=== PATIENT | female | born 1975 | race Caucasian/White ===

== ENCOUNTER → 2019-05-03 | Outpatient (CLI) | payer OTHER ==
--- NOTE | 2019-05-03 08:49 | FL ---
EXAMINATION TYPE: FL UGI air DATE OF EXAM: 05/03/2019 COMPARISON: NONE HISTORY: Ventral hernia. Abdominal pain. TECHNIQUE: A double contrast UGI study is performed. 1 minute and 45 seconds of fluoroscopy time was utilized with 38 fluoroscopic images saved. FINDINGS: The esophagus shows normal motility and emptying into the stomach. No evidence of hiatal hernia or s tricture noted. The stomach shows normal distensibility, peristalsis, and mucosal folds. No evidence of any mass or ulcer disease. Severe gastroesophageal reflux was seen during the supine portion of the exam. The duodenal bulb, sweep, and proximal small bowel loops are unremarkable. IMPRESSION: Severe gastroesophageal reflux to the level of clavicles and the supine position. No hiat al hernia or stricture seen.
== END | disposition home or self-care (01) ==
LOC: RADUSWWP 07:51
PROVIDERS: ATTEND Family Medicine
DX: K21.9 Gastro-esophageal reflux disease without esophagitis (principal); R11.10 Vomiting, unspecified
CPT/HCPCS: 74246

== ENCOUNTER → 2019-05-08 | Outpatient (CLI) | payer OTHER ==
--- NOTE | 2019-05-08 20:15 | CT ---
EXAMINATION TYPE: CT abdomen w con DATE OF EXAM: 05/08/2019 COMPARISON: HISTORY: LLQ pain, nausea w/vomiting. Not able to keep food down. CT DLP: 1286 mGycm Automated exposure control for dose reduction was used. TECHNIQUE: Helical acquisition of images was performed from the lung bases through the top of iliac crest to include entire abdomen. CONTRAST: Performed with Oral Contrast and with IV Contrast, patient injected with 100 mL of Isovue 300. FINDINGS: LUNG BASES: Motion artifact limits assessment of the lung bases. No obvious consolidation. LIVER/GB: No significant abnormality is appreciated. PANCREAS: No significant abnormality is seen. SPLEEN: Tiny accessory spleen noted. ADRENALS: No significant abnormality is seen. KIDNEYS: No significant abnormality is seen. BOWEL: Bowel gas pattern nonspecific. Stomach is decompressed and limited in assessment. Tiny hiatal hernia suspected. LYMPH NODES: No significant abnormality is seen. OSSEOUS STRUCTURES: Hypertrophic changes of the spine. OTHER: Tiny fat-containing periumbilical hernia. Aorta of normal caliber. IMPRESSION: NO ACUTE PROCESS.
== END | disposition home or self-care (01) ==
LOC: RADCTMAIN 15:28
PROVIDERS: ATTEND Family Medicine
DX: R10.32 Left lower quadrant pain (principal); R11.2 Nausea with vomiting, unspecified
CPT/HCPCS: 74160; Q9967

== ENCOUNTER 2020-06-05 08:40 | Emergency (ER) | payer OTHER ==
[2020-06-05 08:44] VITALS: RESP 18; TEMP 99
[2020-06-05] MEDS ORDERED: FAMOTIDINE 20 MG/2 ML VIAL IV STA (09:00)
[2020-06-05] MEDS ORDERED: SODIUM CHLORIDE 0.9% 1,000 ML IV STA (09:00)
[2020-06-05] MEDS ORDERED: ONDANSETRON 4 MG/2 ML VIAL IVP STA (09:00)
--- NOTE | 2020-06-05 09:02 | ED ---
General Adult HPI - General Chief complaint: Nausea/Vomiting/Diarrhea Stated complaint: Fever, Abd Pain Time Seen by Provider: 06/05/20 08:46 Source: patient Mode of arrival: ambulatory Limitations: no limitations - History of Present Illness Initial comments: 44-year-old female presents emergency Department with chief complaint of nausea, vomiting, body aches and fatigue. States he was in this emergency department 3 days ago but left without being seen. States she continues to be feel nauseous but the vomiting is slightly improved. She reports some epigastric abdominal pain but states that is due to the repetitive vomiting episodes. She also reports having cold sweats over the last few days. Denies any, does report rhinorrhea. As any chest pain cough or shortness of breath. Patient is a smoker. There is a possibility for Covid. Denies history of abdominal surgeries. Denies any urinary or vaginal symptoms. Denies hematuria, hematochezia or melena. - Related Data Home Medications Medication Instructions Recorded Confirmed Acetaminophen/Diphenhydramine 1 tab PO HS PRN 06/05/20 06/05/20 [Tylenol PM 500-25mg] Dramamine 25 mg PO TID PRN 06/05/20 06/05/20 traMADol HCL [Ultram] 50 mg PO TID PRN 06/05/20 06/05/20 Previous Rx's Medication Instructions Recorded Ondansetron Odt [Zofran Odt] 4 mg PO Q8HR PRN #14 tab 06/05/20 Allergies Allergy/AdvReac Type Severity Reaction Status Date / Time No Known Allergies Allergy Verified 06/05/20 09:49 Review of Systems ROS Statement: Those systems with pertinent positive or pertinent negative responses have been documented in the HPI. ROS Other: All systems not noted in ROS Statement are negative. Past Medical History Additional Past Medical History / Comment(s): hernia, History of Any Multi-Drug Resistant Organisms: None Reported, MRSA Date of last positivie culture/infection: bacteremia MDRO Source:: 2019 Past Surgical History: No Surgical Hx Reported Past Psychological History: ADD/ADHD, Anxiety, Depression Smoking Status: Current every day smoker Past Alcohol Use History: None Reported Past Drug Use History: None Reported General Exam Limitations: no limitations General appearance: alert, in no apparent distress, obese Head exam: Present: atraumatic, normocephalic, normal inspection Eye exam: Present: normal appearance, PERRL, EOMI Pupils: Present: normal accommodation ENT exam: Present: normal exam, normal oropharynx, mucous membranes moist Neck exam: Present: normal inspection, full ROM. Absent: tenderness Respiratory exam: Present: normal lung sounds bilaterally. Absent: respiratory distress Cardiovascular Exam: Present: regular rate, normal rhythm, normal heart sounds. Absent: systolic murmur GI/Abdominal exam: Present: soft, tenderness (Epigastric tenderness). Absent: distended, guarding, rebound Extremities exam: Present: normal inspection, full ROM, normal capillary refill. Absent: tenderness, pedal edema, joint swelling Back exam: Present: normal inspection, full ROM. Absent: tenderness, CVA tenderness (R) Neurological exam: Present: alert, oriented X3 Psychiatric exam: Present: normal affect, normal mood Skin exam: Present: warm, dry, intact, normal color Course Vital Signs 06/05/20 06/05/20 08:42 10:03 Temperature 99 F Pulse Rate 100 96 Respiratory 18 18 Rate Blood Pressure 152/93 126/86 O2 Sat by Pulse 96 98 Oximetry Medical Decision Making - Medical Decision Making 44-year-old female presents to the emergency department with a chief complaint of abdominal pain. On physical examination, patient does appear to be nauseous. She also has some tenderness in the. Umbilical epigastric abdominal region. CBC reveals leukocytosis of 17 K likely secondary to the vomiting. This appears to be reactive in nature. CMP is unremarkable. UA shows no signs of urinary tract infection. Patient is not . CT of abdomen and pelvis reveals no acute findings aside for mild enteritis. She did mention afterwards of some diarrhea over the last few days, on and off. I advised to follow with the primary care physician. Strict return parameters were thoroughly discussed with patient was understanding and agreeable. Case discussed with Dr. King. - Lab Data Result diagrams: 06/05/20 09:32 06/05/20 09:32 Lab Results 06/05/20 06/05/20 06/05/20 Range/Units 09:32 09:32 09:32 WBC 17.2 H (3.8-10.6) k/uL RBC 5.12 (3.80-5.40) m/uL Hgb 15.8 (11.4-16.0) gm/dL Hct 45.4 (34.0-46.0) % MCV 88.6 (80.0-100.0) fL MCH 30.9 (25.0-35.0) pg MCHC 34.8 (31.0-37.0) g/dL RDW 12.0 (11.5-15.5) % Plt Count 312 (150-450) k/uL MPV 6.9 Neutrophils % 75 % Lymphocytes % 17 % Monocytes % 6 % Eosinophils % 1 % Basophils % 0 % Neutrophils # 12.9 H (1.3-7.7) k/uL Lymphocytes # 2.9 (1.0-4.8) k/uL Monocytes # 1.0 (0-1.0) k/uL Eosinophils # 0.2 (0-0.7) k/uL Basophils # 0.0 (0-0.2) k/uL Sodium 137 (137-145) mmol/L Potassium 3.9 (3.5-5.1) mmol/L Chloride 105 (98-107) mmol/L Carbon Dioxide 21 L (22-30) mmol/L Anion Gap 11 mmol/L BUN 12 (7-17) mg/dL Creatinine 0.64 (0.52-1.04) mg/dL Est GFR (CKD-EPI)AfAm >90 (>60 ml/min/1.73 sqM) Est GFR (CKD-EPI)NonAf >90 (>60 ml/min/1.73 sqM) Glucose 112 H (74-99) mg/dL Calcium 9.8 (8.4-10.2) mg/dL Total Bilirubin 0.5 (0.2-1.3) mg/dL AST 31 (14-36) U/L ALT 21 (4-34) U/L Alkaline Phosphatase 71 (38-126) U/L Total Protein 7.7 (6.3-8.2) g/dL Albumin 4.4 (3.5-5.0) g/dL Lipase 30 (23-300) U/L HCG, Qual Urine Color Urine Appearance (Clear) Urine pH (5.0-8.0) Ur Specific [place] (1.001-1.035) Urine Protein (Negative) Urine Glucose (UA) (Negative) Urine Ketones (Negative) Urine Blood (Negative) Urine Nitrite (Negative) Urine Bilirubin (Negative) Urine Urobilinogen (<2.0) mg/dL Ur Leukocyte Esterase (Negative) Urine RBC (0-5) /hpf Urine WBC (0-5) /hpf Ur Squamous Epith Cells (0-4) /hpf Urine Bacteria (None) /hpf Urine Mucus (None) /hpf Coronavirus (PCR) Not Detected (Not Detectd) 06/05/20 06/05/20 Range/Units 09:32 11:11 WBC (3.8-10.6) k/uL RBC (3.80-5.40) m/uL Hgb (11.4-16.0) gm/dL Hct (34.0-46.0) % MCV (80.0-100.0) fL MCH (25.0-35.0) pg MCHC (31.0-37.0) g/dL RDW (11.5-15.5) % Plt Count (150-450) k/uL MPV Neutrophils % % Lymphocytes % % Monocytes % % Eosinophils % % Basophils % % Neutrophils # (1.3-7.7) k/uL Lymphocytes # (1.0-4.8) k/uL Monocytes # (0-1.0) k/uL Eosinophils # (0-0.7) k/uL Basophils # (0-0.2) k/uL Sodium (137-145) mmol/L Potassium (3.5-5.1) mmol/L Chloride (98-107) mmol/L Carbon Dioxide (22-30) mmol/L Anion Gap mmol/L BUN (7-17) mg/dL Creatinine (0.52-1.04) mg/dL Est GFR (CKD-EPI)AfAm (>60 ml/min/1.73 sqM) Est GFR (CKD-EPI)NonAf (>60 ml/min/1.73 sqM) Glucose (74-99) mg/dL Calcium (8.4-10.2) mg/dL Total Bilirubin (0.2-1.3) mg/dL AST (14-36) U/L ALT (4-34) U/L Alkaline Phosphatase (38-126) U/L Total Protein (6.3-8.2) g/dL Albumin (3.5-5.0) g/dL Lipase (23-300) U/L HCG, Qual Not Detected Urine Color Yellow Urine Appearance Clear (Clear) Urine pH 6.5 (5.0-8.0) Ur Specific [place] 1.029 (1.001-1.035) Urine Protein Negative (Negative) Urine Glucose (UA) Negative (Negative) Urine Ketones Negative (Negative) Urine Blood Trace H (Negative) Urine Nitrite Negative (Negative) Urine Bilirubin Negative (Negative) Urine Urobilinogen <2.0 (<2.0) mg/dL Ur Leukocyte Esterase Negative (Negative) Urine RBC 3 (0-5) /hpf Urine WBC 1 (0-5) /hpf Ur Squamous Epith Cells 1 (0-4) /hpf Urine Bacteria Rare H (None) /hpf Urine Mucus Rare H (None) /hpf Coronavirus (PCR) (Not Detectd) Disposition Clinical Impression: Enteritis, Abdominal pain, Nausea & vomiting Disposition: HOME SELF-CARE Condition: Stable Instructions (If sedation given, give patient instructions): Abdominal Pain (ED) Additional Instructions: Please return to the Emergency Department if symptoms worsen or any other concerns. Prescriptions: Ondansetron Odt [Zofran Odt] 4 mg PO Q8HR PRN #14 tab PRN Reason: Nausea Is patient prescribed a controlled substance at d/c from ED?: No Referrals: None,Stated [REFERRING] - 1-2 days Time of Disposition: 11:52
[2020-06-05] MEDS ORDERED: KETOROLAC 15 MG/ML 1 ML VIAL IVP STA (09:46)
[2020-06-05 09:57] LABS: Basophils % (A) 0 %; Eosinophils # (A) 0.2 k/uL (0-0.7); Eosinophils % (A) 1 %; HCT 45.4 % (34.0-46.0); HGB 15.8 gm/dL (11.4-16.0); Lymphocytes # (A) 2.9 k/uL (1.0-4.8); Lymphocytes % (A) 17 %; MCH 30.9 pg (25.0-35.0); MCHC 34.8 g/dL (31.0-37.0); MCV 88.6 fL (80.0-100.0); Mean Platelet Volume 6.9; Monocytes % (A) 6 %; Neutrophils # (A) 12.9 k/uL (1.3-7.7); Neutrophils % (A) 75 %; Platelet Count 312 k/uL (150-450); RBC 5.12 m/uL (3.80-5.40); WBC 17.2 k/uL (3.8-10.6)
[2020-06-05 10:04] VITALS: BP 126/86; PULSE 96
[2020-06-05 10:12] LABS: ALT 21 U/L (4-34); AST 31 U/L (14-36); African American GFR (CKD) >90 (>60 ml/min/1.73 sqM); Albumin 4.4 g/dL (3.5-5.0); Alkaline Phosphatase 71 U/L (38-126); Anion Gap 11 mmol/L; Blood Urea Nitrogen 12 mg/dL (7-17); Calcium 9.8 mg/dL (8.4-10.2); Carbon Dioxide 21 mmol/L (22-30); Chloride 105 mmol/L (98-107); Glucose 112 mg/dL (74-99); Lipase 30 U/L (23-300); Non-African American GFR(CKD) >90 (>60 ml/min/1.73 sqM); Potassium 3.9 mmol/L (3.5-5.1); Sodium 137 mmol/L (137-145); Total Bilirubin 0.5 mg/dL (0.2-1.3); Total Protein 7.7 g/dL (6.3-8.2)
--- NOTE | 2020-06-05 11:29 | CT ---
EXAMINATION TYPE: CT abdomen pelvis w con DATE OF EXAM: 06/05/2020 COMPARISON: 05/08/2019 HISTORY: 44-year-old female Epigastric pain for 3 days TECHNIQUE: Contiguous axial scanning of the abdomen and pelvis following administration of 100 ml Iso daniel 300 IV contrast. Delayed images through the kidneys and coronal/sagittal reconstructions perform ed. CT DLP: 1543.3 mGycm Automated exposure control for dose reduction was used. FINDINGS: Heart normal size without pericardial effusion. Lung bases clear without pleural effusion. Liver borderline enlarged at 17.9 cm. There is low attenuation suggesting fatty infiltration. There is an 8 mm hypervascular blush within the right hepatic dome probably flash filling hemangioma or area of vascular shunting. Portal venous system is patent. No biliary ductal dilatation. Adrenal glands so slight 1.1 cm nodular thickening on the left, unchanged from 05/08/2019 suggesting a benign etiology. Kidneys, spleen, and pancreas within normal limits. No dilated small bowel, free fluid, or free air. Some prominent fluid-filled small bowel loops in the mid and lower abdomen. Normal appendix. Mild stool burden in the right side of the colon. No pericolonic inflammatory change . Bladder is urine distended. Uterus anteverted. Both ovaries are visualized. Peripherally enhancing cy stic structure of the right ovary measures 2.0 cm suggestive of functional cyst. Tiny pelvic phleboli th. No abnormal fluid collection in the pelvis or pelvic lymphadenopathy. Bones: Some facet arthropathy in the mid to lower lumbar spine. No osseous destructive process. No IMPRESSION: 1. 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 2. 1.1 CM NODULARITY OF THE LEFT ADRENAL GLAND, UNCHANGED FROM 05/08/2019 COMPATIBLE WITH A BENIGN ERICA OLOGY, A SMALL ADRENAL ADENOMA IS STATISTICALLY THE MOST LIKELY POSSIBILITY. 3. A PERIPHERALLY ENHANCING 2.0 CM CYSTIC STRUCTURE OF THE RIGHT OVARY, LIKELY CORPUS LUTEUM. 4. SOME PROMINENT FLUID-FILLED SMALL BOWEL LOOPS IN THE MID AND LOWER ABDOMEN MAY BE TRANSIENT OR COU LD REPRESENT A MILD ENTERITIS.
[2020-06-05 11:39] LABS: Appearance,Urine Clear (Clear); Bacteria,Urine Rare /hpf; Bilirubin,Urine Negative (Negative); Blood,Urine Trace (Negative); Color,Urine Yellow; Glucose,Urine (UA) Negative (Negative); Ketones,Urine Negative (Negative); Leukocyte Esterase,Urine Negative (Negative); Mucus,Urine Rare /hpf; Nitrite,Urine Negative (Negative); PH, Urine 6.5 (5.0-8.0); Protein,Urine Negative (Negative); RBC,Urine 3 /hpf (0-5); Specific Gravity,Urine 1.029 (1.001-1.035); Squamous Epithelial Cell,Urine 1 /hpf (0-4); Urobilinogen,Urine <2.0 mg/dL (<2.0); WBC,Urine 1 /hpf (0-5)
== END 2020-06-05 12:34 | disposition home or self-care (01) ==
LOC: EC 08:40
DX: K52.9 Noninfective gastroenteritis and colitis, unspecified (principal); D72.829 Elevated white blood cell count, unspecified; F41.9 Anxiety disorder, unspecified; F32.9 Major depressive disorder, single episode, unspecified; F17.200 Nicotine dependence, unspecified, uncomplicated; Z20.822 Contact with and (suspected) exposure to COVID-19
CPT/HCPCS: 36415; 80053; 83690; 85025; 81001; 84703; 87635; 74177; 99284; 96374; 96375 ×2; 96361; J2405; J1885; Q9967

== ENCOUNTER 2020-06-06 16:28 | Observation (INO) | payer OTHER ==
[2020-06-06 16:35] VITALS: RESP 18
[2020-06-06] MEDS ORDERED: ONDANSETRON 4 MG/2 ML VIAL IVP STA (17:03)
[2020-06-06] MEDS ORDERED: HYDROmorphone 0.5 MG/0.5 ML SYRINGE IVP STA ×2 (17:03→17:06)
[2020-06-06] MEDS ORDERED: SODIUM CHLORIDE 0.9% 1,000 ML IV ONE (17:03)
[2020-06-06] MEDS: SODIUM CHLORIDE 0.9% 1,000 ML IV SCH ×2 (17:11→22:34)
[2020-06-06 17:28] LABS: Basophils # (A) 0.1 k/uL (0-0.2); Basophils % (A) 0 %; Eosinophils # (A) 0.2 k/uL (0-0.7); Eosinophils % (A) 1 %; HGB 16.2 gm/dL (11.4-16.0); Lymphocytes # (A) 1.7 k/uL (1.0-4.8); Lymphocytes % (A) 9 %; MCH 30.4 pg (25.0-35.0); MCHC 33.8 g/dL (31.0-37.0); MCV 90.1 fL (80.0-100.0); Mean Platelet Volume 6.9; Monocytes # (A) 0.6 k/uL (0-1.0); Monocytes % (A) 3 %; Neutrophils # (A) 16.3 k/uL (1.3-7.7); Neutrophils % (A) 86 %; Platelet Count 327 k/uL (150-450); RBC 5.33 m/uL (3.80-5.40); RDW 11.9 % (11.5-15.5); WBC 18.9 k/uL (3.8-10.6)
[2020-06-06] MEDS ORDERED: METOCLOPRAMIDE 5 MG/ML 2 ML VIAL IVP STA (17:39)
[2020-06-06] MEDS ORDERED: LORazepam 2 MG/ML INJ IV STA (17:40)
[2020-06-06 17:43] LABS: ALT 25 U/L (4-34); AST 27 U/L (14-36); African American GFR (CKD) >90 (>60 ml/min/1.73 sqM); Albumin 4.5 g/dL (3.5-5.0); Alkaline Phosphatase 78 U/L (38-126); Amylase 55 U/L (30-110); Anion Gap 11 mmol/L; Blood Urea Nitrogen 15 mg/dL (7-17); Calcium 9.5 mg/dL (8.4-10.2); Carbon Dioxide 25 mmol/L (22-30); Chloride 101 mmol/L (98-107); Glucose 136 mg/dL (74-99); Lipase 30 U/L (23-300); Non-African American GFR(CKD) >90 (>60 ml/min/1.73 sqM); Potassium 3.8 mmol/L (3.5-5.1); Sodium 137 mmol/L (137-145); Total Bilirubin 0.5 mg/dL (0.2-1.3); Total Protein 7.8 g/dL (6.3-8.2)
--- NOTE | 2020-06-06 18:22 | CT ---
EXAMINATION TYPE: CT abdomen pelvis w con DATE OF EXAM: 06/06/2020 COMPARISON: 06-05-2020 INDICATION: Abdominal pain with nausea and vomiting. DLP: 1906.7 mGycm, Automated exposure control for dose reduction was used. CONTRAST: 100 mL of Isovue 300. Study performed without Oral Contrast TECHNIQUE: Axial images were obtained from above the diaphragm to the pubic rami in the axial plane a t 5 mm thick sections. Reconstructed images are reviewed on the computer in the coronal plane. FINDINGS: Limited CT sections are obtained the lung bases. The lung bases are clear. CT ABDOMEN: Liver: Normal Spleen: Normal Pancreas: Normal Adrenal glands: Small left adrenal thickening is present again right adrenal gland appears stable. Gallbladder: Normal Kidneys: No masses are evident. No hydronephrosis is present. No cysts are present. Delayed images were obtained through the kidneys, which remain unremarkable. Aorta: Normal Inferior vena cava: Normal. CT PELVIS: There is some prominent small bowel loops containing fluid within the distal ileum. Mild wall thicken ing of the decompressed ascending colon may be present. Sigmoid colon is decompressed. Descending col on is decompressed. The study is without oral contrast. Appendix: Normal as visualized. Urinary bladder: Normal. Genitourinary structures: Uterus is normal. Adnexal regions are unremarkable Osseous structures: No suspicious lytic or sclerotic lesions. IMPRESSIONS: 1. Fluid-filled distal small bowel loops with decompressed colon. Obstruction however is not felt to be present. Findings could be related to gastroenteritis. Follow-up can be performed as clinically i ndicated.
[2020-06-06 19:32] LABS: Appearance,Urine Clear (Clear); Bacteria,Urine Rare /hpf; Bilirubin,Urine Negative (Negative); Blood,Urine Trace (Negative); Color,Urine Light Yellow; Glucose,Urine (UA) Negative (Negative); Ketones,Urine Negative (Negative); Leukocyte Esterase,Urine Negative (Negative); Mucus,Urine Rare /hpf; Nitrite,Urine Negative (Negative); PH, Urine 6.5 (5.0-8.0); Protein,Urine Negative (Negative); RBC,Urine 1 /hpf (0-5); Squamous Epithelial Cell,Urine 4 /hpf (0-4); Urobilinogen,Urine <2.0 mg/dL (<2.0); WBC,Urine 1 /hpf (0-5)
[2020-06-06 19:35] LABS: Specific Gravity,Urine 1.047 (1.001-1.035)
[2020-06-06] MEDS ORDERED: NALOXONE 0.4 MG/ML 1 ML VIAL IV PRN (20:22)
--- NOTE | 2020-06-06 20:22 | ED ---
Abdominal Pain HPI - General Chief Complaint: Abdominal Pain Stated Complaint: Abd pain Time Seen by Provider: 06/06/20 16:57 Source: patient Mode of arrival: ambulatory Limitations: no limitations - History of Present Illness Initial Comments: 44-year-old female presenting to the emergency department today for chief complaint of abdominal pain and vomiting. Patient states she's been vomiting for the past 3-4 days. She states she's also been constipated. She states today she had a very slight amount of diarrhea, however it was minimal. She states that she cannot keep anything down, and has severe abdominal pain. Patient states the past 3 years she's had chronic on and off abdominal pain that usually only lasts for a few hours during the episodes do occur. She states this feels different this time. She denies puking oblige denies any blood or melanotic stools. She denies fevers chest pain shortness of breath. Patient denies any cough. Patient has no additional complaints and upon arrival she appears nontoxic but is dry heaving - Related Data Home Medications Medication Instructions Recorded Confirmed Acetaminophen/Diphenhydramine 1 tab PO HS PRN 06/05/20 06/06/20 [Tylenol PM 500-25mg] Dramamine 25 mg PO TID PRN 06/05/20 06/06/20 traMADol HCL [Ultram] 50 mg PO TID PRN 06/05/20 06/06/20 Previous Rx's Medication Instructions Recorded Ondansetron Odt [Zofran Odt] 4 mg PO Q8HR PRN #14 tab 06/05/20 Allergies Allergy/AdvReac Type Severity Reaction Status Date / Time No Known Allergies Allergy Verified 06/06/20 20:59 Review of Systems ROS Statement: Those systems with pertinent positive or pertinent negative responses have been documented in the HPI. ROS Other: All systems not noted in ROS Statement are negative. Past Medical History Past Medical History: No Reported History Additional Past Medical History / Comment(s): hernia, History of Any Multi-Drug Resistant Organisms: None Reported, MRSA Date of last positivie culture/infection: bacteremia MDRO Source:: 2019 Past Surgical History: No Surgical Hx Reported Past Psychological History: ADD/ADHD, Anxiety, Depression Smoking Status: Current every day smoker Past Alcohol Use History: None Reported Past Drug Use History: None Reported - Past Family History Mother Additional Family Medical History / Comment(s): multiple sclerosis General Exam - General Exam Comments Initial Comments: General: The patient is awake and alert, in no distress Eye: Pupils are equal, round and reactive to light, extra-ocular movements are intact. No nystagmus. There is normal conjunctiva bilaterally. No signs of icterus. Ears, nose, mouth and throat: There are moist mucous membranes and no oral lesions. Neck: The neck is supple, there is no tenderness or JVD. Cardiovascular: There is a regular rate and rhythm. No murmur, rub or gallop is appreciated. Respiratory: Lungs are clear to auscultation, respirations are non-labored, breath sounds are equal. No wheezes, stridor, rales, or rhonchi. Gastrointestinal: Soft, non-distended, diffuse abdominal tenderness, abdomen is without masses or organomegaly noted. There is no rebound or guarding present. Musculoskeletal: Normal ROM, no tenderness. Strength 5/5. Sensation intact. Radial and DP pulses equal bilaterally 2+. Neurological: A&O x 3. CN II-XII intact grossly, There are no obvious motor or sensory deficits. Coordination appears grossly intact. Speech is normal. Skin: Skin is warm and dry and no rashes or lesions are noted. Psychiatric: Cooperative, appropriate mood & affect, normal judgment. Limitations: no limitations Course Vital Signs 06/06/20 06/06/20 16:33 22:12 Temperature 98.4 F 98.7 F Pulse Rate 77 Pulse Rate [ 76 Left] Respiratory 18 18 Rate Blood Pressure 149/97 Blood Pressure 176/97 [Right Arm] O2 Sat by Pulse 99 97 Oximetry Medical Decision Making - Medical Decision Making Leukocytosis. Patient CT cannot r/o obstruction, hx constipation. patient cannot tolerate oral intake without vomiting. pt case discussed with Dr. Islas who recommends admission. Dr Chong accepted admission. - Lab Data Result diagrams: 06/06/20 17:12 06/06/20 17:12 Lab Results 06/06/20 06/06/20 06/06/20 Range/Units 17:12 17:12 17:12 WBC 18.9 H (3.8-10.6) k/uL RBC 5.33 (3.80-5.40) m/uL Hgb 16.2 H (11.4-16.0) gm/dL Hct 48.0 H (34.0-46.0) % MCV 90.1 (80.0-100.0) fL MCH 30.4 (25.0-35.0) pg MCHC 33.8 (31.0-37.0) g/dL RDW 11.9 (11.5-15.5) % Plt Count 327 (150-450) k/uL MPV 6.9 Neutrophils % 86 % Lymphocytes % 9 % Monocytes % 3 % Eosinophils % 1 % Basophils % 0 % Neutrophils # 16.3 H (1.3-7.7) k/uL Lymphocytes # 1.7 (1.0-4.8) k/uL Monocytes # 0.6 (0-1.0) k/uL Eosinophils # 0.2 (0-0.7) k/uL Basophils # 0.1 (0-0.2) k/uL Sodium 137 (137-145) mmol/L Potassium 3.8 (3.5-5.1) mmol/L Chloride 101 (98-107) mmol/L Carbon Dioxide 25 (22-30) mmol/L Anion Gap 11 mmol/L BUN 15 (7-17) mg/dL Creatinine 0.81 (0.52-1.04) mg/dL Est GFR (CKD-EPI)AfAm >90 (>60 ml/min/1.73 sqM) Est GFR (CKD-EPI)NonAf >90 (>60 ml/min/1.73 sqM) Glucose 136 H (74-99) mg/dL Plasma Lactic Acid Dane 1.6 (0.7-2.0) mmol/L Calcium 9.5 (8.4-10.2) mg/dL Total Bilirubin 0.5 (0.2-1.3) mg/dL AST 27 (14-36) U/L ALT 25 (4-34) U/L Alkaline Phosphatase 78 (38-126) U/L Troponin I (0.000-0.034) ng/mL Total Protein 7.8 (6.3-8.2) g/dL Albumin 4.5 (3.5-5.0) g/dL Amylase 55 (30-110) U/L Lipase 30 (23-300) U/L Urine Color Urine Appearance (Clear) Urine pH (5.0-8.0) Ur Specific [place] (1.001-1.035) Urine Protein (Negative) Urine Glucose (UA) (Negative) Urine Ketones (Negative) Urine Blood (Negative) Urine Nitrite (Negative) Urine Bilirubin (Negative) Urine Urobilinogen (<2.0) mg/dL Ur Leukocyte Esterase (Negative) Urine RBC (0-5) /hpf Urine WBC (0-5) /hpf Ur Squamous Epith Cells (0-4) /hpf Urine Bacteria (None) /hpf Urine Mucus (None) /hpf 06/06/20 06/06/20 Range/Units 17:12 19:03 WBC (3.8-10.6) k/uL RBC (3.80-5.40) m/uL Hgb (11.4-16.0) gm/dL Hct (34.0-46.0) % MCV (80.0-100.0) fL MCH (25.0-35.0) pg MCHC (31.0-37.0) g/dL RDW (11.5-15.5) % Plt Count (150-450) k/uL MPV Neutrophils % % Lymphocytes % % Monocytes % % Eosinophils % % Basophils % % Neutrophils # (1.3-7.7) k/uL Lymphocytes # (1.0-4.8) k/uL Monocytes # (0-1.0) k/uL Eosinophils # (0-0.7) k/uL Basophils # (0-0.2) k/uL Sodium (137-145) mmol/L Potassium (3.5-5.1) mmol/L Chloride (98-107) mmol/L Carbon Dioxide (22-30) mmol/L Anion Gap mmol/L BUN (7-17) mg/dL Creatinine (0.52-1.04) mg/dL Est GFR (CKD-EPI)AfAm (>60 ml/min/1.73 sqM) Est GFR (CKD-EPI)NonAf (>60 ml/min/1.73 sqM) Glucose (74-99) mg/dL Plasma Lactic Acid Dane (0.7-2.0) mmol/L Calcium (8.4-10.2) mg/dL Total Bilirubin (0.2-1.3) mg/dL AST (14-36) U/L ALT (4-34) U/L Alkaline Phosphatase (38-126) U/L Troponin I <0.012 (0.000-0.034) ng/mL Total Protein (6.3-8.2) g/dL Albumin (3.5-5.0) g/dL Amylase (30-110) U/L Lipase (23-300) U/L Urine Color Light Yellow Urine Appearance Clear (Clear) Urine pH 6.5 (5.0-8.0) Ur Specific [place] 1.047 H (1.001-1.035) Urine Protein Negative (Negative) Urine Glucose (UA) Negative (Negative) Urine Ketones Negative (Negative) Urine Blood Trace H (Negative) Urine Nitrite Negative (Negative) Urine Bilirubin Negative (Negative) Urine Urobilinogen <2.0 (<2.0) mg/dL Ur Leukocyte Esterase Negative (Negative) Urine RBC 1 (0-5) /hpf Urine WBC 1 (0-5) /hpf Ur Squamous Epith Cells 4 (0-4) /hpf Urine Bacteria Rare H (None) /hpf Urine Mucus Rare H (None) /hpf Disposition Clinical Impression: Abdominal pain, Vomiting Disposition: ADMITTED IP TO THIS [facility] Condition: Stable Is patient prescribed a controlled substance at d/c from ED?: No Time of Disposition: 20:30 Decision to Admit Reason: Admit from EC Decision Date: 06/06/20 Decision Time: 20:30
[2020-06-06] MEDS: ONDANSETRON 4 MG/2 ML VIAL IVP PRN (22:34)
[2020-06-06] MEDS: HYDROmorphone 1 MG/ML 1 ML SYRINGE IVP PRN (22:34)
[2020-06-07] MEDS: PANTOPRAZOLE 40 MG/10 ML VIAL IVP SCH ×2 (00:29→22:01)
[2020-06-07] MEDS: ONDANSETRON 4 MG/2 ML VIAL IVP PRN ×2 (10:13→18:11)
[2020-06-07] MEDS: HYDROmorphone 1 MG/ML 1 ML SYRINGE IVP PRN ×2 (10:13→19:57)
[2020-06-07] MEDS: SODIUM CHLORIDE 0.9% 1,000 ML IV SCH ×3 (10:22→22:01)
--- NOTE | 2020-06-07 10:25 | P.GSCN ---
History of Present Illness Consult date: 06/07/20 History of present illness: 44-year-old female presents to emergency department with complaints of abdominal pain. This is her second visit to the emergency department within a few days. She states that she was having significant abdominal pain in the epigastrium and left lower quadrant along with intractable nausea and vomiting. She states that she has had these episodes frequently over the past 3 years, however this episode is worse than previously. She states she has had upper endoscopy for evaluation in the past without any significant findings. Currently, the patient states her last bowel movement was yesterday. She denies any fevers, chills, chest pain or shortness of breath. She denies any recent cough. CT of the abdomen and pelvis was performed in the emergency department with concern for some dilated small bowel loops. There did not appear to be any obstructive finding. Patient denies any previous abdominal surgery. She has no additional complaints at this time. Review of Systems All systems: negative Past Medical History Past Medical History: No Reported History Additional Past Medical History / Comment(s): hernia, History of Any Multi-Drug Resistant Organisms: None Reported, MRSA Year Discovered:: bacteremia MDRO Source:: 2019 Past Surgical History: No Surgical Hx Reported Past Anesthesia/Blood Transfusion Reactions: No Reported Reaction Past Psychological History: ADD/ADHD, Anxiety, Depression Smoking Status: Current every day smoker Past Alcohol Use History: None Reported Past Drug Use History: None Reported - Past Family History Mother Additional Family Medical History / Comment(s): multiple sclerosis Medications and Allergies Home Medications Medication Instructions Recorded Confirmed Type Acetaminophen/Diphenhydramine 1 tab PO HS PRN 06/05/20 06/06/20 History [Tylenol PM 500-25mg] Dramamine 25 mg PO TID PRN 06/05/20 06/06/20 History Ondansetron Odt [Zofran Odt] 4 mg PO Q8HR PRN #14 tab 06/05/20 06/06/20 Rx traMADol HCL [Ultram] 50 mg PO TID PRN 06/05/20 06/06/20 History Allergies Allergy/AdvReac Type Severity Reaction Status Date / Time No Known Allergies Allergy Verified 06/06/20 20:59 Surgical - Exam Osteopathic Statement: *. No significant issues noted on an osteopathic stru ctural exam other than those noted in the History and Physical/Consult. Vital Signs Temp Pulse Resp BP Pulse Ox 98.4 F 77 18 149/97 99 06/06/20 16:33 06/06/20 16:33 06/06/20 16:33 06/06/20 16:33 06/06/20 16:33 - General well developed, well nourished, no distress - Eyes normal ocular movement - ENT normal mucosa - Neck trachea midline - Respiratory normal respiratory effort - Abdomen Soft, mild tenderness to deep palpation in the epigastrium and the left lower quadrant, nondistended, no rebound, no guarding - Psychiatric oriented to time, oriented to person, oriented to place Results - Labs 06/06/20 17:12 06/06/20 17:12 Abnormal Lab Results - Last 24 Hours (Table) 06/06/20 06/06/20 06/06/20 Range/Units 17:12 17:12 19:03 WBC 18.9 H (3.8-10.6) k/uL Hgb 16.2 H (11.4-16.0) gm/dL Hct 48.0 H (34.0-46.0) % Neutrophils # 16.3 H (1.3-7.7) k/uL Glucose 136 H (74-99) mg/dL Ur Specific [place] 1.047 H (1.001-1.035) Urine Blood Trace H (Negative) Urine Bacteria Rare H (None) /hpf Urine Mucus Rare H (None) /hpf Diabetes panel 06/06/20 Range/Units 17:12 Sodium 137 (137-145) mmol/L Potassium 3.8 (3.5-5.1) mmol/L Chloride 101 (98-107) mmol/L Carbon Dioxide 25 (22-30) mmol/L BUN 15 (7-17) mg/dL Creatinine 0.81 (0.52-1.04) mg/dL Glucose 136 H (74-99) mg/dL Calcium 9.5 (8.4-10.2) mg/dL AST 27 (14-36) U/L ALT 25 (4-34) U/L Alkaline Phosphatase 78 (38-126) U/L Total Protein 7.8 (6.3-8.2) g/dL Albumin 4.5 (3.5-5.0) g/dL Calcium panel 06/06/20 Range/Units 17:12 Calcium 9.5 (8.4-10.2) mg/dL Albumin 4.5 (3.5-5.0) g/dL Pituitary panel 06/06/20 Range/Units 17:12 Sodium 137 (137-145) mmol/L Potassium 3.8 (3.5-5.1) mmol/L Chloride 101 (98-107) mmol/L Carbon Dioxide 25 (22-30) mmol/L BUN 15 (7-17) mg/dL Creatinine 0.81 (0.52-1.04) mg/dL Glucose 136 H (74-99) mg/dL Calcium 9.5 (8.4-10.2) mg/dL Adrenal panel 06/06/20 Range/Units 17:12 Sodium 137 (137-145) mmol/L Potassium 3.8 (3.5-5.1) mmol/L Chloride 101 (98-107) mmol/L Carbon Dioxide 25 (22-30) mmol/L BUN 15 (7-17) mg/dL Creatinine 0.81 (0.52-1.04) mg/dL Glucose 136 H (74-99) mg/dL Calcium 9.5 (8.4-10.2) mg/dL Total Bilirubin 0.5 (0.2-1.3) mg/dL AST 27 (14-36) U/L ALT 25 (4-34) U/L Alkaline Phosphatase 78 (38-126) U/L Total Protein 7.8 (6.3-8.2) g/dL Albumin 4.5 (3.5-5.0) g/dL Assessment and Plan Plan: 44-year-old female with abdominal pain, nausea and vomiting. Computed tomography scan was reviewed with some dilated loops of bowel. Per report, obstruction is not clearly visualized. The dilated loops of bowel could be secondary to ileus after patient's vomiting episodes. The patient also does mention having a bowel movement yesterday. We will obtain an abdominal x-ray to further evaluate progress of ileus. Based on the patient's epigastric and somewhat right upper quadrant pain and continued nausea episodes along with leukocytosis, we will perform an abdominal ultrasound to evaluate for any gallbladder disease. Keep the patient nothing by mouth for now. Continue to treat with antiemetics as needed. Currently, clinical picture does appear nonsurgical, we will however await further imaging results.
[2020-06-07 10:34] LABS: Basophils # (A) 0.1 k/uL (0-0.2); Basophils % (A) 1 %; Eosinophils # (A) 0.1 k/uL (0-0.7); Eosinophils % (A) 1 %; HCT 42.6 % (34.0-46.0); HGB 14.4 gm/dL (11.4-16.0); Lymphocytes # (A) 3.9 k/uL (1.0-4.8); Lymphocytes % (A) 28 %; MCH 30.5 pg (25.0-35.0); MCHC 33.9 g/dL (31.0-37.0); MCV 90.1 fL (80.0-100.0); Monocytes % (A) 7 %; Neutrophils # (A) 8.6 k/uL (1.3-7.7); Neutrophils % (A) 62 %; Platelet Count 266 k/uL (150-450); RBC 4.72 m/uL (3.80-5.40); RDW 12.5 % (11.5-15.5); WBC 13.9 k/uL (3.8-10.6)
[2020-06-07 10:52] LABS: African American GFR (CKD) >90 (>60 ml/min/1.73 sqM); Anion Gap 8 mmol/L; Blood Urea Nitrogen 10 mg/dL (7-17); Carbon Dioxide 18 mmol/L (22-30); Chloride 109 mmol/L (98-107); Glucose 79 mg/dL (74-99); Non-African American GFR(CKD) >90 (>60 ml/min/1.73 sqM); Sodium 135 mmol/L (137-145)
--- NOTE | 2020-06-07 10:52 | XR ---
EXAMINATION TYPE: XR abdomen acute w cxr DATE OF EXAM: 06/07/2020 COMPARISON: None INDICATION: Ileus TECHNIQUE: Abdomen is examined in supine and upright views and supplemented with frontal chest FINDINGS: Heart size is normal. Pulmonary vasculature is normal. Lungs are clear. No free air is under the diap hragm. Nonspecific bowel gas pattern is present. Single small bowel loop with air is present. No suspicious differential air-fluid levels are evident. There is within the colon. Psoas margins are normal. No organomegaly is present. IMPRESSION: 1. Normal acute abdominal series.
[2020-06-07 10:57] LABS: Potassium 3.6 mmol/L (3.5-5.1)
--- NOTE | 2020-06-07 11:54 | US ---
EXAMINATION TYPE: US abdomen complete DATE OF EXAM: 06/07/2020 COMPARISON: NONE CLINICAL HISTORY: RUQ, epigastric pain. RUQ/epigastric pain, vomiting EXAM MEASUREMENTS: Liver Length: 14.5 cm Gallbladder Wall: 0.2 cm CBD: 0.4 cm Spleen: 10.0 cm Right Kidney: 11.6 x 5.6 x 4.2 cm Left Kidney: 11.1 x 6.1 x 5.8 cm Technical limitations due to patient's body habitus and large amount of overlying bowel content Pancreas: Obscured by bowel gas Liver: attenuating, heterogeneous Gallbladder: no evidence of stones as visualized Evidence for sonographic Herbert's sign: no CBD: appears wnl as visualized Spleen: wnl Right Kidney: no evidence of hydronephrosis Left Kidney: no evidence of hydronephrosis Upper IVC: wnl Abd Aorta: wnl IMPRESSION: 1. Mild fatty infiltration of the liver. 2. Abdomen ultrasound is otherwise unremarkable.
--- NOTE | 2020-06-07 16:11 | HP ---
HISTORY AND PHYSICAL CHIEF COMPLAINT: Intractable abdominal pain and nausea and vomiting. HISTORY OF PRESENT ILLNESS: This lady was in the office yesterday after having been in the emergency room at [facility]. She had a CT at [facility] and she was told that her "large bowel was inflamed." She has never had a history of bowel disease, nor family history. She has had no bloody diarrhea, hematemesis, fever, chills, food intolerance, etc. She was evaluated in the office earlier in the day before she came to the emergency room and was offered the option of being admitted, but she chose to try to be treated at home, but came in after she developed more abdominal pain and vomiting. REVIEW OF SYSTEMS: She has had no headaches, difficulty with vision or hearing, chest pain, shortness of breath, cough, hemoptysis, liver disease, jaundice, renal failure, dysuria, frequency, diabetes, etc. Her pain is in the lower abdomen. She has not had any abdominal surgery. PHYSICAL EXAMINATION: Blood pressure 116/80, pulse of 88 and regular. Respirations 18. She is afebrile. In general, she appeared to be slightly overweight and in no acute distress. Skin color is normal. Skin is warm, dry. Lymph nodes are not enlarged. Head, ears, eyes, nose, mouth and throat are normal. Chest is clear. Cardiac exam is normal sinus rhythm. The abdomen is slightly protuberant and she has tenderness in the lower abdomen without rebound or refer. There are no masses or visceromegaly. Bowel sounds are heard. Extremities: Normal. Neurologically she is intact. IMPRESSION: She is admitted to the hospital with diagnoses: Lower abdominal pain with intractable nausea and vomiting, the etiology unknown. PLAN: 1. Bedrest. 2. IV fluids. 3. Rehydrate. 4. Consult with General Surgery. 5. Follow her vital signs as well as abdominal findings. MMODL / IJN: [id number] /
--- NOTE | 2020-06-07 16:23 | PN ---
PROGRESS NOTE DATE OF SERVICE: 06/07/2020. CHIEF COMPLAINT: Abdominal pain and intractable vomiting. HISTORY OF PRESENT ILLNESS: This lady is still having the lower abdominal pain. She has not had a fever chills and she still feels nauseated. PHYSICAL EXAMINATION: Chest is clear. Abdomen seems soft and she is slightly tender in the lower abdomen without masses. Bowel sounds are heard. IMPRESSION: Intractable nausea and vomiting as well as lower abdominal pain, etiology unknown. PLAN: Continue to follow her vital signs and abdominal findings as well as lab work and await surgery's recommendations for further evaluation. MMODL / IJN: [id number] /
[2020-06-08] MEDS: SODIUM CHLORIDE 0.9% 1,000 ML IV SCH ×2 (05:11→13:26)
--- NOTE | 2020-06-08 09:58 | P.PN ---
Subjective Progress Note Date: 06/08/20 Patient seen and examined at bedside. States she is feeling somewhat better. Abdominal x-ray and ultrasound were performed yesterday. No significant acute findings were noted. She is tolerating clear liquid diet. Objective - Vital Signs Vital signs: Vital Signs Temp 98.1 F 06/08/20 07:55 Pulse 69 06/08/20 07:55 Resp 18 06/08/20 07:55 BP 144/82 06/08/20 07:55 Pulse Ox 98 06/08/20 07:55 Intake & Output 06/07/20 06/08/20 06/08/20 18:59 06:59 18:59 Intake Total 0 650 Balance 0 650 Intake: Intake, IV Titration 650 Amount Sodium Chloride 0.9% 1, 650 000 ml @ 130 mls/hr IV . Q7H42M [facility] Rx#:[id number] Oral 0 Other: Voiding Method Toilet Toilet # Voids 1 2 - Constitutional General appearance: Present: cooperative, no acute distress - Gastrointestinal Gastrointestinal Comment(s): Soft, nontender, nondistended, no rebound, no guarding - Psychiatric Psychiatric: Present: A&O x's 3 - Labs CBC & Chem 7: 06/07/20 09:53 06/07/20 09:53 Labs: Abnormal Lab Results - Last 24 Hours (Table) 06/07/20 06/07/20 Range/Units 09:53 09:53 WBC 13.9 H (3.8-10.6) k/uL Neutrophils # 8.6 H (1.3-7.7) k/uL Sodium 135 L (137-145) mmol/L Chloride 109 H (98-107) mmol/L Carbon Dioxide 18 L (22-30) mmol/L Calcium 8.0 L (8.4-10.2) mg/dL Assessment and Plan Plan: 44-year-old female with abdominal pain, nausea and vomiting. Nausea and vomiting have improved. Abdominal x-ray was reviewed with no obvious obstructive findings. Patient is having flatus. Abdominal ultrasound showing no biliary etiology of the patient's symptoms. At this point, this does not appear to be surgical. We will advance to full liquid diet. I would recommend outpatient follow-up with gastroenterology for further workup as this has been an issue for the patient for greater than 3 years.
[2020-06-08 19:07] VITALS: BP 133/84; PULSE 82; TEMP 97.8
== END 2020-06-08 19:07 | disposition home or self-care (01) ==
LOC: EC 16:28 → 6NMEDSUR 20:41 → 1SOBS 22:11
PROVIDERS: ADMIT Family Medicine; ATTEND Family Medicine
DX: R10.32 Left lower quadrant pain (principal); R11.2 Nausea with vomiting, unspecified; D72.829 Elevated white blood cell count, unspecified; R10.13 Epigastric pain; R10.11 Right upper quadrant pain; R19.7 Diarrhea, unspecified; K59.00 Constipation, unspecified; F17.200 Nicotine dependence, unspecified, uncomplicated; F41.9 Anxiety disorder, unspecified; F90.9 Attention-deficit hyperactivity disorder, unspecified type; F32.9 Major depressive disorder, single episode, unspecified; Z86.14 Personal history of Methicillin resistant Staphylococcus aureus infection; Z87.19 Personal history of other diseases of the digestive system; Z82.0 Family history of epilepsy and other diseases of the nervous system
CPT/HCPCS: 96361 ×3; 96375 ×2; 96376 ×2; 96374; 99285; 36415; 80053; 80048; 82150; 83605; 83690; 84484; 85025 ×2; 81001; 74022; 76700; 74177; G0378 ×3; J2060; J2765; J2405 ×2; J1170 ×3; C9113; Q9967

== ENCOUNTER → 2020-06-11 | Outpatient (CLI) | payer OTHER ==
--- NOTE | 2020-06-11 12:02 | FL ---
EXAMINATION TYPE: FL UGI air w small bowel DATE OF EXAM: 06/11/2020 COMPARISON: CT abdomen and pelvis 5 days ago HISTORY: Nausea and vomiting. Abdominal pain and dysphagia. TECHNIQUE: A double contrast UGI study is performed with small bowel follow through. 40 seconds of f luoroscopic time. There are 56 images saved to PACS. FINDINGS: Marine Reporter image of the abdomen shows no gross abnormality. The esophagus shows satisfactory motility and emptying into the stomach. No evidence of fixed hiatal hernia or stricture noted. No diverticulum. No intraluminal mass. The stomach shows slightly less than optimal distention. Normal mucosal folds. No evidence of any ma ss or ulcer disease. Moderate to severe esophageal reflux was seen during real time performance of th is study. The duodenal bulb and sweep are unremarkable. The small bowel study shows normal transit to the colon in less than 35 minutes. There is normal muc osal fold pattern throughout the small bowel. There is no evidence of any stricture or filling defec t noted. The terminal ileum is spotted and appears unremarkable. IMPRESSION: Moderate to severe gastroesophageal reflux otherwise unremarkable study.
== END | disposition home or self-care (01) ==
LOC: RADFLMAIN 09:03
PROVIDERS: ATTEND Family Medicine
DX: K21.9 Gastro-esophageal reflux disease without esophagitis (principal)
CPT/HCPCS: 74240; 74248

== ENCOUNTER 2020-07-30 13:38 | Emergency (ER) | payer OTHER ==
[2020-07-30 14:10] VITALS: TEMP 98.3
[2020-07-30 16:25] LABS: Basophils # (A) 0.1 k/uL (0-0.2); Basophils % (A) 0 %; Eosinophils # (A) 0.4 k/uL (0-0.7); Eosinophils % (A) 3 %; HCT 41.6 % (34.0-46.0); HGB 14.4 gm/dL (11.4-16.0); Lymphocytes # (A) 3.5 k/uL (1.0-4.8); Lymphocytes % (A) 26 %; MCH 31.2 pg (25.0-35.0); MCHC 34.6 g/dL (31.0-37.0); MCV 90.3 fL (80.0-100.0); Mean Platelet Volume 6.8; Monocytes # (A) 0.7 k/uL (0-1.0); Monocytes % (A) 5 %; Neutrophils # (A) 8.4 k/uL (1.3-7.7); Neutrophils % (A) 64 %; Platelet Count 269 k/uL (150-450); RBC 4.61 m/uL (3.80-5.40); WBC 13.3 k/uL (3.8-10.6)
[2020-07-30 16:31] LABS: Appearance,Urine Cloudy (Clear); Bacteria,Urine Rare /hpf; Bilirubin,Urine Negative (Negative); Blood,Urine Large (Negative); Color,Urine Yellow; Glucose,Urine (UA) Negative (Negative); Ketones,Urine Negative (Negative); Leukocyte Esterase,Urine Large (Negative); Mucus,Urine Rare /hpf; Nitrite,Urine Negative (Negative); PH, Urine 5.5 (5.0-8.0); Protein,Urine Trace (Negative); RBC,Urine 7 /hpf (0-5); Specific Gravity,Urine 1.012 (1.001-1.035); Squamous Epithelial Cell,Urine 31 /hpf (0-4); Urobilinogen,Urine <2.0 mg/dL (<2.0); WBC,Urine 23 /hpf (0-5)
[2020-07-30 16:37] LABS: ALT 21 U/L (4-34); AST 29 U/L (14-36); African American GFR (CKD) >90 (>60 ml/min/1.73 sqM); Albumin 4.1 g/dL (3.5-5.0); Alkaline Phosphatase 64 U/L (38-126); Anion Gap 7 mmol/L; Blood Urea Nitrogen 8 mg/dL (7-17); Calcium 9.3 mg/dL (8.4-10.2); Carbon Dioxide 24 mmol/L (22-30); Chloride 106 mmol/L (98-107); Glucose 88 mg/dL (74-99); Non-African American GFR(CKD) >90 (>60 ml/min/1.73 sqM); Potassium 3.7 mmol/L (3.5-5.1); Sodium 137 mmol/L (137-145); Total Bilirubin 0.3 mg/dL (0.2-1.3)
[2020-07-30 16:53] LABS: HCG,Quantitative Serum 894.8 mIU/mL
--- NOTE | 2020-07-30 17:16 | ED ---
General Adult HPI - General Chief complaint: Vaginal Bleeding Stated complaint: Poss Miscarriage/8 wks Time Seen by Provider: 07/30/20 15:38 Source: patient Mode of arrival: ambulatory Limitations: no limitations - History of Present Illness Initial comments: 44 year-old female patient presents to the emergency department sent by [facility] for evaluation after having an abnormal ultrasound. Patient is 8 weeks , . Patient reports spotting on and off for the last week or so. States that there has been very mild bleeding, no passage of blood clots. Denies any abdominal pain or cramping. States that she had ultrasound at the clinic today and they were unable to find heart movement or tones. Did have previous ultrasound showing intrauterine . Denies any dizziness or weakness. Denies any fever or chills. Does not have an OBGYN as she moved to the area about a year and a half ago. Patient denies any recent rash, cough, shortness of breath, chest pain, vomiting, diarrhea, constipation, back pain, numbness, tingling, dizziness, weakness, hematuria, dysuria, urinary urgency, urinary frequency, headache, visual changes, or any other complaints. - Related Data Home Medications Medication Instructions Recorded Confirmed Famotidine [Pepcid] 20 mg PO HS 07/30/20 07/30/20 Pantoprazole Sodium 40 mg PO BID 07/30/20 07/30/20 Allergies Allergy/AdvReac Type Severity Reaction Status Date / Time No Known Allergies Allergy Verified 07/30/20 16:31 Review of Systems ROS Statement: Those systems with pertinent positive or pertinent negative responses have been documented in the HPI. ROS Other: All systems not noted in ROS Statement are negative. Past Medical History Past Medical History: No Reported History Additional Past Medical History / Comment(s): hernia, History of Any Multi-Drug Resistant Organisms: None Reported, MRSA Date of last positivie culture/infection: bacteremia MDRO Source:: 2019 Past Surgical History: No Surgical Hx Reported Past Anesthesia/Blood Transfusion Reactions: No Reported Reaction Past Psychological History: ADD/ADHD, Anxiety, Depression Smoking Status: Current every day smoker Past Alcohol Use History: None Reported Past Drug Use History: None Reported - Past Family History Mother Additional Family Medical History / Comment(s): multiple sclerosis General Exam Limitations: no limitations General appearance: alert, in no apparent distress, other (Physical well- developed, well-nourished adult female patient in no acute distress. Vital signs upon presentation temperature 98.3F, pulse 86, respirations 20, blood pressure 130/91, pulse ox 97% on room air.) Eye exam: Present: normal appearance, PERRL, EOMI. Absent: scleral icterus, conjunctival injection, periorbital swelling ENT exam: Present: normal exam, normal oropharynx, mucous membranes moist Respiratory exam: Present: normal lung sounds bilaterally. Absent: respiratory distress, wheezes, rales, rhonchi, stridor Cardiovascular Exam: Present: regular rate, normal rhythm, normal heart sounds. Absent: systolic murmur, diastolic murmur, rubs, gallop, clicks GI/Abdominal exam: Present: soft, normal bowel sounds. Absent: distended, tende rness, guarding, rebound, rigid Neurological exam: Present: alert, oriented X3, CN II-XII intact Psychiatric exam: Present: normal affect, normal mood Skin exam: Present: warm, dry, intact, normal color. Absent: rash Course Vital Signs 07/30/20 07/30/20 14:05 17:32 Temperature 98.3 F Pulse Rate 86 75 Respiratory 20 18 Rate Blood Pressure 130/91 141/100 O2 Sat by Pulse 97 99 Oximetry Medical Decision Making - Medical Decision Making 44-year-old female patient who is G3, P1, approximately 8 weeks presents to the emergency department today for evaluation of intermittent spotting and abnormal ultrasound at outpatient clinic. States that she has no spotting today. No passage of clots. No abdominal pain. Physical examination revealed soft nontender abdomen. Labs reviewed and did reveal hCG at 864. Ultrasound did show intrauterine measuring 7 weeks 2 days with no evidence for heart tones, this is consistent with demise. Case was discussed with on-call TRAFFIC ENGINEERING TECHNICIAN Dr. Parada who will be able to see patient in the office tomorrow. I did discuss findings, results, plan with the patient, she is agreeable. Given phone number to make an appointment. Return parameters were discussed in detail. She verbalizes understanding and agrees with this plan. Case discussed with my attending Dr. Juan. - Lab Data Result diagrams: 07/30/20 16:16 07/30/20 16:16 Lab Results 07/30/20 07/30/20 07/30/20 Range/Units 16:16 16:16 16:16 WBC 13.3 H (3.8-10.6) k/uL RBC 4.61 (3.80-5.40) m/uL Hgb 14.4 (11.4-16.0) gm/dL Hct 41.6 (34.0-46.0) % MCV 90.3 (80.0-100.0) fL MCH 31.2 (25.0-35.0) pg MCHC 34.6 (31.0-37.0) g/dL RDW 12.0 (11.5-15.5) % Plt Count 269 (150-450) k/uL MPV 6.8 Neutrophils % 64 % Lymphocytes % 26 % Monocytes % 5 % Eosinophils % 3 % Basophils % 0 % Neutrophils # 8.4 H (1.3-7.7) k/uL Lymphocytes # 3.5 (1.0-4.8) k/uL Monocytes # 0.7 (0-1.0) k/uL Eosinophils # 0.4 (0-0.7) k/uL Basophils # 0.1 (0-0.2) k/uL Sodium 137 (137-145) mmol/L Potassium 3.7 (3.5-5.1) mmol/L Chloride 106 (98-107) mmol/L Carbon Dioxide 24 (22-30) mmol/L Anion Gap 7 mmol/L BUN 8 (7-17) mg/dL Creatinine 0.59 (0.52-1.04) mg/dL Est GFR (CKD-EPI)AfAm >90 (>60 ml/min/1.73 sqM) Est GFR (CKD-EPI)NonAf >90 (>60 ml/min/1.73 sqM) Glucose 88 (74-99) mg/dL Calcium 9.3 (8.4-10.2) mg/dL Total Bilirubin 0.3 (0.2-1.3) mg/dL AST 29 (14-36) U/L ALT 21 (4-34) U/L Alkaline Phosphatase 64 (38-126) U/L Total Protein 7.0 (6.3-8.2) g/dL Albumin 4.1 (3.5-5.0) g/dL HCG, Quant 894.8 mIU/mL Urine Color Yellow Urine Appearance Cloudy H (Clear) Urine pH 5.5 (5.0-8.0) Ur Specific [place] 1.012 (1.001-1.035) Urine Protein Trace H (Negative) Urine Glucose (UA) Negative (Negative) Urine Ketones Negative (Negative) Urine Blood Large H (Negative) Urine Nitrite Negative (Negative) Urine Bilirubin Negative (Negative) Urine Urobilinogen <2.0 (<2.0) mg/dL Ur Leukocyte Esterase Large H (Negative) Urine RBC 7 H (0-5) /hpf Urine WBC 23 H (0-5) /hpf Ur Squamous Epith Cells 31 H (0-4) /hpf Urine Bacteria Rare H (None) /hpf Urine Mucus Rare H (None) /hpf Blood Type Blood Type Recheck Bld Type Recheck Status 07/30/20 Range/Units 16:16 WBC (3.8-10.6) k/uL RBC (3.80-5.40) m/uL Hgb (11.4-16.0) gm/dL Hct (34.0-46.0) % MCV (80.0-100.0) fL MCH (25.0-35.0) pg MCHC (31.0-37.0) g/dL RDW (11.5-15.5) % Plt Count (150-450) k/uL MPV Neutrophils % % Lymphocytes % % Monocytes % % Eosinophils % % Basophils % % Neutrophils # (1.3-7.7) k/uL Lymphocytes # (1.0-4.8) k/uL Monocytes # (0-1.0) k/uL Eosinophils # (0-0.7) k/uL Basophils # (0-0.2) k/uL Sodium (137-145) mmol/L Potassium (3.5-5.1) mmol/L Chloride (98-107) mmol/L Carbon Dioxide (22-30) mmol/L Anion Gap mmol/L BUN (7-17) mg/dL Creatinine (0.52-1.04) mg/dL Est GFR (CKD-EPI)AfAm (>60 ml/min/1.73 sqM) Est GFR (CKD-EPI)NonAf (>60 ml/min/1.73 sqM) Glucose (74-99) mg/dL Calcium (8.4-10.2) mg/dL Total Bilirubin (0.2-1.3) mg/dL AST (14-36) U/L ALT (4-34) U/L Alkaline Phosphatase (38-126) U/L Total Protein (6.3-8.2) g/dL Albumin (3.5-5.0) g/dL HCG, Quant mIU/mL Urine Color Urine Appearance (Clear) Urine pH (5.0-8.0) Ur Specific [place] (1.001-1.035) Urine Protein (Negative) Urine Glucose (UA) (Negative) Urine Ketones (Negative) Urine Blood (Negative) Urine Nitrite (Negative) Urine Bilirubin (Negative) Urine Urobilinogen (<2.0) mg/dL Ur Leukocyte Esterase (Negative) Urine RBC (0-5) /hpf Urine WBC (0-5) /hpf Ur Squamous Epith Cells (0-4) /hpf Urine Bacteria (None) /hpf Urine Mucus (None) /hpf Blood Type O Positive Blood Type Recheck No Previous Record Bld Type Recheck Status CABO Indicated - Radiology Data Radiology results: report reviewed, image reviewed Ultrasound was obtained, pole measuring 1.1 cm, corresponding to 7 weeks 2 days. Unable to detect any heart tones by color Doppler over M mode. Findings suggestive of demise. Correlate for expected downtrending beta hCG. Disposition Clinical Impression: Missed , demise Disposition: HOME SELF-CARE Condition: Good Instructions (If sedation given, give patient instructions): Miscarriage (ED) Additional Instructions: Call [employer] TRAFFIC ENGINEERING TECHNICIAN tomorrow, phone number: [phone], asked for Simon. They should be able to see you tomorrow in the office. Return to the emergency department for any new, worsening, or concerning symptoms. Is patient prescribed a controlled substance at d/c from ED?: No Referrals: Walter Chong MD [Primary Care Provider] - 1-2 days Louise Parada MD [STAFF PHYSICIAN] - 1-2 days Time of Disposition: 17:50
--- NOTE | 2020-07-30 17:20 | US ---
EXAMINATION TYPE: Ultrasound OB <= 14 weeks transvaginal DATE OF EXAM: 07/30/2020 5:03 PM COMPARISON: NONE CLINICAL HISTORY: 44-year-old female Spotting; no heart tones detected. Patient at [facility] today and no heart tones detected EXAM PERFORMED: Transvaginal (TV) and Transabdominal (TA) FINDINGS: EXAM MEASUREMENTS: GESTATIONAL AGE / DATING Physician Established: Not yet established Dates by LMP: LMP unknown Dates by First Scan: No previous scan here Dates by Current Scan for: (7 weeks/2 days) EDC: 03/16/21 - unable to detect heart tones MATERNAL ANATOMY Uterus: 12.8 x 5.6 x 7.3cm Right Ovary: 3.6 x 2.3 x 2.3cm Left Ovary: unable to visualize Post CDS / Adnexa: appears wnl Presence of free fluid: no Presence of corpus luteal cyst: yes, hypoechoic area right ovary = 2.0 x 2.0 x 2.3cm GESTATION / SURVEY CRL: 1.1cm, (7 weeks/2 days) Yolk Sac (normal less than 6mm): not seen Heart Rate: unable to detect Date of LMP: unknown Beta HcG (if available): 894 IMPRESSION: 1. pole measuring 1.1 cm, corresponding to 7 weeks 2 days. Unable to detect any heart ton es by color Doppler over M-mode. Findings highly suggestive of demise. Correlate for expected d owntrending beta hCG.
[2020-07-30 18:04] VITALS: BP 138/98; PULSE 88; RESP 16
== END 2020-07-30 18:04 | disposition home or self-care (01) ==
LOC: EC 13:38
DX: O02.1 Missed abortion (principal); O09.511 Supervision of elderly primigravida, first trimester; O99.331 Smoking (tobacco) complicating pregnancy, first trimester; O99.341 Other mental disorders complicating pregnancy, first trimester; F17.200 Nicotine dependence, unspecified, uncomplicated; F32.9 Major depressive disorder, single episode, unspecified; Z3A.08 8 weeks gestation of pregnancy
CPT/HCPCS: 36415; 76801; 76817; 80053; 81001; 84702; 85025; 86900; 86901; 87086; 99284

== ENCOUNTER 2020-07-31 12:07 | Emergency (ER) | payer OTHER ==
[2020-07-31] MEDS ORDERED: ONDANSETRON 4 MG/2 ML VIAL IVP STA (13:45)
[2020-07-31] MEDS ORDERED: MORPHINE SULFATE 4 MG/ML SYRINGE IV STA (13:50)
[2020-07-31] MEDS ORDERED: SODIUM CHLORIDE 0.9% 1,000 ML IV STA (13:50)
--- NOTE | 2020-07-31 14:01 | ED ---
General Adult HPI - General Chief complaint: Vaginal Bleeding Stated complaint: Miscarriage/Nausea/Vomiting Time Seen by Provider: 07/31/20 13:42 Source: patient, RN notes reviewed Mode of arrival: ambulatory Limitations: no limitations - History of Present Illness Initial comments: 44-year-old female who comes to the emergency room with abdominal pain after being seen here yesterday for the same. Patient was diagnosed with a threatened AB and demise by ultrasound yesterday. Was at the [employer] office today and was having an exam patient states that she was pulling tissue well. Cramping increased and then patient had increased nausea and was sent to the emergency room for treatment of pain and nausea. Patient is alert and oriented 4, very tearful, complaining mostly of cramps 8 out of 10 pain. Blood pressure elevated 161/106 with heart rate of 76. Patient is not soaking pads and reports no increasing bleeding since leaving the office. Patient admits to being a smoker. Location: abdomen Radiation: non-radiation Severity scale (1-10): 8 Quality: other Consistency: constant (Cramping) Improves with: none Worsens with: movement Associated Symptoms: nausea/vomiting, other (Patient diagnosed with a threatened AB and demise yesterday, sent by [employer] doctor from office with increased pain and nausea) Treatments Prior to Arrival: none - Related Data Home Medications Medication Instructions Recorded Confirmed Famotidine [Pepcid] 20 mg PO HS 07/30/20 07/31/20 Pantoprazole Sodium 40 mg PO BID 07/30/20 07/31/20 Allergies Allergy/AdvReac Type Severity Reaction Status Date / Time No Known Allergies Allergy Verified 07/31/20 14:14 Review of Systems ROS Statement: Those systems with pertinent positive or pertinent negative responses have been documented in the HPI. ROS Other: All systems not noted in ROS Statement are negative. Past Medical History Past Medical History: No Reported History Additional Past Medical History / Comment(s): hernia, History of Any Multi-Drug Resistant Organisms: None Reported, MRSA Date of last positivie culture/infection: bacteremia MDRO Source:: 2019 Past Surgical History: No Surgical Hx Reported Past Anesthesia/Blood Transfusion Reactions: No Reported Reaction Past Psychological History: ADD/ADHD, Anxiety, Depression Smoking Status: Current every day smoker Past Alcohol Use History: None Reported Past Drug Use History: None Reported - Past Family History Mother Additional Family Medical History / Comment(s): multiple sclerosis General Exam Limitations: no limitations General appearance: alert, in no apparent distress Head exam: Present: atraumatic, normocephalic, normal inspection Eye exam: Present: normal appearance, PERRL, EOMI. Absent: scleral icterus, conjunctival injection, periorbital swelling Pupils: Present: normal accommodation ENT exam: Present: normal exam, normal oropharynx, mucous membranes dry Neck exam: Present: normal inspection, full ROM. Absent: tenderness, meningismus, lymphadenopathy, thyromegaly Respiratory exam: Present: normal lung sounds bilaterally Cardiovascular Exam: Present: regular rate, normal rhythm, normal heart sounds. Absent: systolic murmur, diastolic murmur, rubs, gallop, clicks GI/Abdominal exam: Present: soft, tenderness. Absent: rigid, pulsatile mass, hernia Rectal exam: Present: deferred Extremities exam: Present: normal inspection, full ROM, normal capillary refill. Absent: tenderness, pedal edema, joint swelling, calf tenderness Back exam: Present: normal inspection, full ROM. Absent: tenderness, CVA tenderness (R), CVA tenderness (L), muscle spasm, paraspinal tenderness, vertebral tenderness, rash noted Neurological exam: Present: alert, oriented X3, CN II-XII intact Psychiatric exam: Present: normal affect, normal mood, anxious Skin exam: Present: warm, dry, intact, normal color. Absent: rash Course Vital Signs 07/31/20 07/31/20 07/31/20 12:13 14:00 16:05 Temperature 97.4 F L 98.5 F Pulse Rate 76 88 68 Respiratory 24 20 18 Rate Blood Pressure 161/106 151/101 150/88 O2 Sat by Pulse 100 100 98 Oximetry 07/31/20 16:25 Temperature 99.1 F Pulse Rate Respiratory Rate Blood Pressure O2 Sat by Pulse Oximetry - Reevaluation(s) Reevaluation #1: 07/31/20 15:[address] Parada as patient was seen in the office this morning. Will rep eat ultrasound and serum hCG. hemoglobin and hematocrit is stable patient is hemodynamically stable. Patient continues to complain of cramping pain. Minimal bleeding upon vaginal exam, os is closed. Time: 15:20 Medical Decision Making - Medical Decision Making Hemoglobin and hematocrit is 15.4 and 45.6 respectively, yesterday she was 14.4 and 41.6 respectively. Ultrasound shows some retained fluid no gestational sac no retained products. Serum hCG down to 305. Dr. Parada notified of results states to her have patient continue with her plan of care as given this morning. Take Tylenol #3, and have repeat labs in 1 week. Pelvic rest, no intercourse. Dr. Jiménez agreeable to plan of care - Lab Data Result diagrams: 07/31/20 13:55 Lab Results 07/31/20 07/31/20 Range/Units 13:55 15:27 WBC 14.7 H (3.8-10.6) k/uL RBC 4.99 (3.80-5.40) m/uL Hgb 15.4 (11.4-16.0) gm/dL Hct 45.6 (34.0-46.0) % MCV 91.3 (80.0-100.0) fL MCH 30.9 (25.0-35.0) pg MCHC 33.9 (31.0-37.0) g/dL RDW 12.1 (11.5-15.5) % Plt Count 277 (150-450) k/uL MPV 7.3 Neutrophils % 80 % Lymphocytes % 13 % Monocytes % 5 % Eosinophils % 1 % Basophils % 0 % Neutrophils # 11.8 H (1.3-7.7) k/uL Lymphocytes # 1.9 (1.0-4.8) k/uL Monocytes # 0.7 (0-1.0) k/uL Eosinophils # 0.1 (0-0.7) k/uL Basophils # 0.0 (0-0.2) k/uL HCG, Quant 305.5 mIU/mL Disposition Clinical Impression: Complete Disposition: HOME SELF-CARE Condition: Fair Instructions (If sedation given, give patient instructions): Miscarriage (ED) Additional Instructions: Take Tylenol [address] Parada, pelvic rest and no intercourse until released by Dr. Parada. Repeat labs drawn as prescribed. Is patient prescribed a controlled substance at d/c from ED?: No Referrals: Walter Chong MD [Primary Care Provider] - 1-2 days Time of Disposition: 17:42
[2020-07-31 14:45] LABS: Basophils % (A) 0 %; Eosinophils # (A) 0.1 k/uL (0-0.7); Eosinophils % (A) 1 %; HCT 45.6 % (34.0-46.0); HGB 15.4 gm/dL (11.4-16.0); Lymphocytes # (A) 1.9 k/uL (1.0-4.8); Lymphocytes % (A) 13 %; MCH 30.9 pg (25.0-35.0); MCHC 33.9 g/dL (31.0-37.0); MCV 91.3 fL (80.0-100.0); Mean Platelet Volume 7.3; Monocytes # (A) 0.7 k/uL (0-1.0); Monocytes % (A) 5 %; Neutrophils # (A) 11.8 k/uL (1.3-7.7); Neutrophils % (A) 80 %; Platelet Count 277 k/uL (150-450); RBC 4.99 m/uL (3.80-5.40); RDW 12.1 % (11.5-15.5); WBC 14.7 k/uL (3.8-10.6)
[2020-07-31] MEDS ORDERED: MORPHINE SULFATE 4 MG/ML SYRINGE IVP STA (15:15)
[2020-07-31 16:06] VITALS: RESP 18
--- NOTE | 2020-07-31 17:07 | US ---
EXAMINATION TYPE: Transabdominal DATE OF EXAM: 07/31/2020 4:45 PM COMPARISON: NONE CLINICAL HISTORY: retained products demise Patient here yesterday with demise. EXAM PERFORMED: EXAM MEASUREMENTS: GESTATIONAL AGE / DATING Physician Established: Not yet established Dates by LMP: LMP unknown Dates by First Scan: (7 weeks/2 days) EDC: 03-16-21 Dates by Current Scan for: Unable to date by today's study MATERNAL ANATOMY Uterus: 10.4 x 4.9 x 6.8cm Right Ovary: 3.3 x 2.5 x 2.4cm Left Ovary: 2.8 x 1.7 x 1.7cm Post CDS / Adnexa: wnl Presence of free fluid: no GESTATION / SURVEY MSD: 1.5cm (5weeks/6 days) IMPRESSION: Decreased echoes along the endometrium may represent some retained fluid, irregular gestational sac, no pole identified at this time
[2020-07-31] MEDS ORDERED: ACET/COD 300 MG/30 MG STARTER PACK 6 TAB BTL PO STA (17:51)
[2020-07-31 18:02] VITALS: BP 133/96; PULSE 94; TEMP 98.8
== END 2020-07-31 18:05 | disposition home or self-care (01) ==
LOC: EC 12:07
DX: O03.9 Complete or unspecified spontaneous abortion without complication (principal); O09.511 Supervision of elderly primigravida, first trimester; O99.331 Smoking (tobacco) complicating pregnancy, first trimester; F17.200 Nicotine dependence, unspecified, uncomplicated; Z3A.01 Less than 8 weeks gestation of pregnancy
CPT/HCPCS: 36415; 85025; 84702; 76801; 99284; 96374; 96375; 96376; 96361; J2270; J2405

== ENCOUNTER → 2020-08-12 | Outpatient (CLI) | payer OTHER | END | disposition home or self-care (01) | LOC: LABWHC1 11:00 | PROVIDERS: ATTEND Obstetrics & Gynecology | DX: O03.9 Complete or unspecified spontaneous abortion without complication (principal); Z3A.00 Weeks of gestation of pregnancy not specified | CPT/HCPCS: 36415; 84702 ==

== ENCOUNTER → 2020-08-15 | Outpatient (CLI) | payer OTHER ==
--- NOTE | 2020-08-15 10:49 | US ---
EXAMINATION TYPE: US pelvis complete transvag DATE OF EXAM: 08/15/2020 COMPARISON: NONE CLINICAL HISTORY: N93.4 vaginal bleeding. TECHNIQUE: Transvaginal (TV) and Transabdominal (TA) . Transvaginal sonographic images of the pelvi s were acquired. Transabdominal sonographic images were medically necessary to better assess the fol lowing anatomy: uterus and ovaries Date of LMP: patient had miscarriage 3 weeks ago, bleeding intermittently since EXAM MEASUREMENTS: Uterus: 10.6 x 4.3 x 6.2 cm Endometrial Stripe: 0.8 cm Right Ovary: 2.6 x 1.7 x 1.6 cm Left Ovary: not visualized Patient of large body habitus. 1. Uterus: wnl 2. Endometrium: within endocervical canal is complex collection measuring 3.7 x 1.5 x 2.2cm 3. Right Ovary: wnl 4. Left Ovary: Obscured by overlying bowel gas 5. Bilateral Adnexa: wnl 6. Posterior cul-de-sac: wnl IMPRESSION: Complex collection within the cervix measures up to 3.7 cm and is indeterminant on this examination. There is no definite internal flow on color Doppler imaging, however, retained products of conception could be present. At least follow-up imaging should be obtained.
--- NOTE | 2020-08-15 11:22 | US ---
EXAMINATION TYPE: US abdomen complete DATE OF EXAM: 08/15/2020 COMPARISON: NONE CLINICAL HISTORY: R10.84 Abd pain. EXAM MEASUREMENTS: Liver Length: 15.3 cm Gallbladder Wall: 0.1 cm CBD: 0.2 cm Spleen: 10.6 cm Right Kidney: 10.8 x 4.6 x 5.1cm Left Kidney: 11.7 x 5.4 x 5.1 cm Pancreas: Obscured by bowel gas Liver: Increased attenuation, decreased visualization of vessels suggestive of fatty infiltrate Gallbladder: limited visualization Evidence for sonographic Herbert's sign: No CBD: wnl Spleen: wnl Right Kidney: Inferior pole obscured by bowel gas Left Kidney: Inferior pole obscured by bowel gas Upper IVC: wnl Abd Aorta: limited visualization, appears wnl as seen The liver is heterogeneous and echogenic with poor penetration. IMPRESSION: 1. Nonspecific findings of the liver are most compatible with hepatic steatosis. Please correlate cli nically. 2. Markedly limited study due to poor acoustic windows.
== END | disposition home or self-care (01) ==
LOC: RADUSWWP 08:55
PROVIDERS: ATTEND Family Medicine
DX: R10.9 Unspecified abdominal pain (principal); N93.9 Abnormal uterine and vaginal bleeding, unspecified
CPT/HCPCS: 76700; 76830; 76856

== ENCOUNTER → 2020-09-08 | Outpatient (CLI) | payer OTHER ==
--- NOTE | 2020-09-09 08:51 | CT ---
EXAMINATION TYPE: CT abdomen wo/w con, CT pelvis w con DATE OF EXAM: 09/08/2020 COMPARISON: CT 06/16/2020 HISTORY: abd and pelvic pain CT DLP: 2905.50 mGycm Automated exposure control for dose reduction was used. TECHNIQUE: Helical acquisition of images was performed from the lung bases through the pelvis to inc lude entire abdomen and pelvis. CONTRAST: Performed with Oral Contrast and with IV Contrast, patient injected with 100 mL of Isovue 300. FINDINGS: LUNG BASES: No significant abnormality is appreciated. LIVER/GB: The liver shows low attenuation likely due to hepatic steatosis. Gallbladder is contracted. PANCREAS: No significant abnormality is seen. SPLEEN: No significant abnormality is seen. ADRENALS: No significant abnormality is seen. KIDNEYS: No significant abnormality is seen. BOWEL: No significant abnormality is seen. There is no evident appendicitis LYMPH NODES: No significant abnormality is appreciated. OSSEOUS STRUCTURES: No significant abnormality is seen. There is a mild spinal curvature. FREE AIR: No Free Air visible ASCITES: None visible. RETROPERITONEAL ADENOPATHY: No Retroperitoneal Adenopathy visible. OTHER: Left ovarian cystic lesion measures 2 cm, suspect there is a nabothian cysts at the level of t he cervix IMPRESSION: FINDINGS CONSISTENT WITH HEPATIC STEATOSIS. PROBABLE LEFT OVARIAN CYST, NABOTHIAN CYST IN CERVIX
== END | disposition home or self-care (01) ==
LOC: RADCTMAIN 18:29
PROVIDERS: ATTEND Family Medicine
DX: N88.8 Other specified noninflammatory disorders of cervix uteri (principal)
CPT/HCPCS: 72193; 74170; Q9967

== ENCOUNTER → 2021-09-14 | Outpatient (CLI) | payer OTHER ==
--- NOTE | 2021-09-14 17:35 | CT ---
EXAMINATION TYPE: CT abdomen pelvis w con DATE OF EXAM: 09/14/2021 COMPARISON: 09/08/2020 HISTORY: lower abdominal pelvic pain and vaginal bleeding CT DLP: 2432.60 mGycm Automated exposure control for dose reduction was used. CONTRAST: Performed with IV Contrast, patient injected with 70 mL of Isovue 300. Images obtained from the diaphragm to the floor the pelvis with oral and IV contrast. Lung bases are clear. No pleural effusion. Heart size is normal. No pericardial effusion. Liver spleen stomach pancreas and gallbladder appear intact. The bile ducts are not dilated. There is no adrenal mass. Kidneys show satisfactory contrast opacification. There is no hydronephrosi s. Delayed images show normal renal excretion. There is no retroperitoneal adenopathy. Appendix appea rs normal. Bladder distends smoothly. No inguinal hernia. No pelvic mass. Uterus is anteverted. No fr ee fluid in the pelvis. Delayed images show normal renal excretion. There is no mesenteric edema. There is no ascites or free air. No bowel obstruction. The lumbar verte brae have normal spacing and alignment. Posterior elements are intact. No compression fracture. The b jamar pelvis is intact. Hip joints are intact. IMPRESSION: Negative CT scan of the abdomen pelvis.
== END | disposition home or self-care (01) ==
LOC: RADCTMAIN 15:14
PROVIDERS: ATTEND Family Medicine
DX: N93.9 Abnormal uterine and vaginal bleeding, unspecified (principal); R10.9 Unspecified abdominal pain
CPT/HCPCS: 74177; Q9967

== ENCOUNTER → 2021-09-16 | Outpatient (CLI) | payer OTHER ==
--- NOTE | 2021-09-16 14:29 | US ---
EXAMINATION TYPE: US transvaginal DATE OF EXAM: 09/16/2021 COMPARISON: NONE CLINICAL HISTORY: R10.9 Abdominal/Pelvic Pain,. TECHNIQUE: Transvaginal (TV). Date of LMP: July, bleeding since EXAM MEASUREMENTS: Uterus: 9.4 x 3.4 x 4.7 cm Endometrial Stripe: 1.0 cm Right Ovary: Obscured by overlying bowel gas Left Ovary: Obscured by overlying bowel gasSpectral, color and waveform doppler imaging shows good arterial and venous flow within the ovaries; there is no evidence for ovarian torsion. cm 1. Uterus: wnl 2. Endometrium: thickened, patient has been bleeding since July 3. Right Ovary: Obscured by overlying bowel gas 4. Left Ovary: Obscured by overlying bowel gas 5. Bilateral Adnexa: wnl 6. Posterior cul-de-sac: wnl IMPRESSION: Mild endometrial thickening. Correlate clinically. Otherwise unremarkable study.
== END | disposition home or self-care (01) ==
LOC: RADUSWWP 12:49
PROVIDERS: ATTEND Family Medicine
DX: R10.9 Unspecified abdominal pain (principal); R93.89 Abnormal findings on diagnostic imaging of other specified body structures
CPT/HCPCS: 76830

== ENCOUNTER → 2023-07-26 | Outpatient (CLI) | payer BC ==
--- NOTE | 2023-08-09 13:25 | CT ---
EXAMINATION TYPE: CT shoulder RT wo con DATE OF EXAM: 07/26/2023 COMPARISON: No radiographic correlation available HISTORY: 47-year-old female Rt shoulder pain x5mo. M24.60, R52 PAIN, UNSPECIFIED STIFFNESS OF UNSPEC I TECHNIQUE: Contiguous axial scanning of the right shoulder without IV contrast. Coronal and sagittal reconstructions performed. CT DLP: 257 mGycm Automated exposure control for dose reduction was used. FINDINGS: Moderate to severe degenerative joint space narrowing at the AC joint with vacuum phenomenon and subc hondral cystic change. Degenerative spurring and mild capsular hypertrophy is noted. Preserved rotator cuff tendon bulk and muscle volume. There is some cystic change noted at the greate r tuberosity. The glenohumeral joint appears intact. No significant joint effusion. No acute fracture, subluxation, dislocation. Visualized right hemithorax is clear. IMPRESSION: 1. MODERATE TO SEVERE AC JOINT OA. 2. SOME CYSTIC CHANGE AT THE GREATER TUBEROSITY SUGGESTS UNDERLYING INSERTIONAL ROTATOR CUFF TENDINOS IS. OVERALL ROTATOR CUFF MUSCLE BULK AND TENDON VOLUME APPEARS TO BE MAINTAINED BY CT. 3. BULKY APPEARANCE TO THE THYROID GLAND. CONSIDER FURTHER THYROID ULTRASOUND EVALUATION TO EXCLUDE U NDERLYING NODULES IF INDICATED.
--- NOTE | 2023-08-09 16:28 | CT ---
EXAMINATION TYPE: CT knee RT wo con DATE OF EXAM: 07/26/2023 COMPARISON: None HISTORY: 47-year-old female M24.60, R52, Rt knee pain no injury TECHNIQUE: Contiguous axial scanning of the right knee without IV contrast. Coronal and sagittal lita nstructions performed. CT DLP: 307 mGycm Automated exposure control for dose reduction was used. FINDINGS: Mild anterior subcutaneous soft tissue swelling. Slight lateral patellar translation. No acute fracture, subluxation, or dislocation is seen. Extensor mechanism appears intact. Trace, physiologic knee joint fluid. Questionable slight extruded appearance to the body of the medial meniscus. IMPRESSION: 1. Nonspecific mild anterior soft tissue swelling. No acute osseous abnormality seen. 2. Questionable slight extruded appearance to the body of the medial meniscus. If concern for underly ing meniscal pathology, MRI can be considered.
== END | disposition home or self-care (01) ==
LOC: RADCTMAIN 16:41
PROVIDERS: ATTEND Family Medicine
DX: M19.011 Primary osteoarthritis, right shoulder (principal); M25.811 Other specified joint disorders, right shoulder; M79.89 Other specified soft tissue disorders; M25.60 Stiffness of unspecified joint, not elsewhere classified; E07.89 Other specified disorders of thyroid; R60.0 Localized edema; M25.561 Pain in right knee

== ENCOUNTER → 2023-11-21 | Outpatient (CLI) | payer BC ==
--- NOTE | 2023-11-21 18:16 | US ---
EXAMINATION TYPE: US thyroid st tissue head/neck DATE OF EXAM: 11/21/2023 COMPARISON: NONE CLINICAL INDICATION: Female, 48 years old with history of R93.[address] SCAN E04.9 ENLARGED THY; Enla rged thyroid follow up to ct scan. GLAND SIZE: Right Lobe: 5.7 x 2.7 x 2.9 cm Overall Parenchyma: homogeneous Left Lobe: 5.6 x 2.2 x 2.7 cm Overall Parenchyma: homogeneous Isthmus Thickness: .5 cm NODULES RIGHT: # of nodules measured on right: 0 LEFT: # of nodules measured on left: 0 ISTHMUS: # of nodules measured in the isthmus: 0 Hypoechoic area seen right lateral neck suggestive of lymph node measuring 2.0 x .6 x .6 cm. IMPRESSION: Thyroid glandular enlargement. 2017 ACR TI-RADS LEVEL: *Highest TI-RADS level nodule reported [facility], , 11/21/2023 6:14 PM
== END | disposition home or self-care (01) ==
LOC: RADUSWWP 07:10
PROVIDERS: ATTEND Family Medicine
DX: R93.89 Abnormal findings on diagnostic imaging of other specified body structures (principal); E04.9 Nontoxic goiter, unspecified
CPT/HCPCS: 76536

== ENCOUNTER → 2023-11-21 | Outpatient (CLI) | payer BC ==
--- NOTE | 2023-11-28 18:11 | CT ---
EXAMINATION TYPE: CT angio head neck DATE OF EXAM: 11/21/2023 COMPARISON: None INDICATION: hypertension, tingling DLP: 1473.00 mGycm, Automated exposure control for dose reduction was used. CONTRAST: None CT of the brain is performed utilizing 3 mm thick sections through the posterior fossa and 3 mm thick sections through the remaining calvarium. Study is performed within 24 hours of arrival to the hosp ital. No abnormal hyperdensity is present to suggest an acute intracranial hemorrhage. No mass lesion is evident. No acute infarcts are evident. Ventricles and sulci are appropriate for the patient age. Paranasal sinuses and mastoid air cells within the [id number] are clear. IMPRESSION: 1. No acute intracranial process. Follow up MRI can be performed as clinically indicated. EXAMINATION TYPE: CT angio head neck DATE OF EXAM: 11/21/2023 HISTORY: hypertension, tingling COMPARISON: None CT DLP: 1473.00 mGycm. Automated Exposure Control for Dose Reduction was Utilized. TECHNIQUE: CTA scan of the neck is performed with IV Contrast, patient injected with 65 mL of Isovue 370, axial images are obtained, coronal and sagittal reformatted images are reviewed. Three-D recons tructed images are created on an independent workstation and reviewed. Source images are reviewed. FINDINGS: Carotid/Vascular Structures: There is a 3 vessel arch. Common carotid arteries bifurcate into internal and external carotid arteries without significant sarai w limiting stenosis. Vertebral arteries are codominant. Internal carotid arteries and vertebral arteries are patent to the skull base. Cervical of [place]: Vertebral basilar system appears normal. Posterior cerebral vasculature is unrema rkable. Internal carotid arteries bifurcate normally into A1 and M1 segments. A2 segments are normal. The anterior communicating artery is not identified. The right posterior communicating artery is patent. The left posterior communicating artery is Three-D reconstructed images reviewed. The segmental area of narrowing in the right mid internal carotid arteries not identified on the source images. IMPRESSION: 1. No flow-limiting stenosis bilateral carotid bifurcations. 2. Normal [place] of [place] NASCET criteria was used in interpretation of this exam? [facility], Workstation: [id number], 11/28/2023 6:08 PM
== END | disposition home or self-care (01) ==
LOC: RADCTMAIN 07:49
PROVIDERS: ATTEND Family Medicine
DX: R20.0 Anesthesia of skin
CPT/HCPCS: 70496; 70498